=== PATIENT | male | born 1940 | race Two or more races ===

== ENCOUNTER 2024-10-12 13:46 | Inpatient (IN) | payer OTHER ==
[2024-10-12] MEDS: ALBUTEROL SO4 2.5/IPRATROPIUM 0.5 INH SOL 3 ML VIAL.NEB. NEB SCH (14:35)
[2024-10-12 14:51] LABS: PH,URINE 5.5 (5.0-8.0); URINE APPEARANCE CLEAR; URINE BILIRUBIN NEGATIVE (NEGATIVE); URINE COLOR YELLOW; URINE GLUCOSE (UA) 3+ (NEGATIVE); URINE KETONE NEGATIVE (NEGATIVE); URINE LEUK ESTERASE NEGATIVE (NEGATIVE); URINE NITRITE NEGATIVE (NEGATIVE); URINE PROTEIN NEGATIVE (NEGATIVE)
[2024-10-12 15:04] LABS: ABSOLUTE IMMATURE GRANULOCYTES 0.14 x10^3/uL (0.0-0.031); BASOPHILS # 0.05 x10^3/uL (0.01-0.08); EOSINOPHIL % 0.2 % (0.8-7.0); EOSINOPHILS # 0.02 x10^3/uL (0.04-0.54); HEMATOCRIT 43.6 % (40.1-51.0); MCHC 34.4 g/dl (32.3-36.5); MEAN CELL VOLUME 96.7 fl (79.0-92.2); MEAN PLT VOLUME 12.3 fl (9.4-12.4); MONOCYTE % 9.2 % (5.3-12.2); PLATELET COUNT # 117 x10^3/uL (163-337); RDW 14.2 % (12.6-16.6)
[2024-10-12] MEDS ORDERED: methylPREDNISolone NA SUCC 125 MG/2 ML VIAL ONE (15:07)
[2024-10-12] MEDS ORDERED: ALBUTEROL SO4 2.5/IPRATROPIUM 0.5 INH SOL 3 ML VIAL.NEB. NEB ONE (15:07)
[2024-10-12] MEDS ORDERED: FUROSEMIDE 40 MG/4 ML INJECTABLE VIAL ONE (15:07)
[2024-10-12 15:13] LABS: VENOUS BASE EXCESS 3.2 mmol/L (-2-2); VENOUS O2 SATURATION 59.5 % (70-80); VENOUS PCO2 50.9 mmHg (38-52); VENOUS PH 7.382 (7.310-7.410)
[2024-10-12 15:28] LABS: POTASSIUM 3.8 mmol/L (3.5-5.1)
[2024-10-12 15:30] LABS: ALBUMIN 4.1 g/dl (3.4-5.0); CALCIUM 8.9 mg/dL (8.5-10.1)
[2024-10-12 15:31] LABS: BLOOD UREA NITROGEN 37.1 mg/dL (7-18); MAGNESIUM 2.5 mg/dL (1.8-2.4)
[2024-10-12 15:33] LABS: CREATININE 2.1 mg/dL (0.55-1.3); PHOSPHOROUS 2.8 mg/dL (2.5-4.9)
[2024-10-12 15:35] LABS: TOT PROT 7.8 g/dl (6.4-8.2)
[2024-10-12 15:38] LABS: N-TERMINAL BNP 1971.5 pg/ml (5-450)
[2024-10-12] MEDS: methylPREDNISolone NA SUCC 125 MG/2 ML VIAL IVPUSH ONE (15:43)
[2024-10-12] MEDS: FUROSEMIDE 40 MG/4 ML INJECTABLE VIAL IVPUSH ONE (15:43)
[2024-10-12] MEDS: SODIUM CHLORIDE 0.9% 500 ML INFUS.BAG IV ONE (15:43)
[2024-10-12] MEDS ORDERED: AZITHROMYCIN IVPB 500 MG/250 ML BAG IVPB ONE (16:13)
[2024-10-12] MEDS ORDERED: CEFTRIAXONE 1 G/50 ML PREMIX 50 ML IVPB ONE (16:13)
[2024-10-12] MEDS: CEFTRIAXONE 1,000 MG in DEXTROSE 5%-WATER - 50 ML IVPB ONE (16:28)
[2024-10-12] MEDS: AZITHROMYCIN IVPB 500 MG in DEXTROSE 5%-WATER - 250 ML IVPB ONE (17:00)
[2024-10-12] MEDS ORDERED: ACETAMINOPHEN 500 MG TABLET (FP) PO PRN (18:18)
[2024-10-12] MEDS ORDERED: ALBUTEROL SO4 2.5/IPRATROPIUM 0.5 INH SOL 3 ML VIAL.NEB. NEB PRN (18:19)
[2024-10-12] MEDS: CARVEDILOL 6.25 MG TABLET (FP) PO SCH (21:18)
[2024-10-12] MEDS: APIXABAN 5 MG TABLET PO SCH (21:19)
[2024-10-13 08:12] LABS: POTASSIUM 3.4 mmol/L (3.5-5.1)
[2024-10-13 08:20] LABS: BLOOD UREA NITROGEN 45.3 mg/dL (7-18); CALCIUM 8.7 mg/dL (8.5-10.1)
[2024-10-13 08:22] LABS: ALBUMIN 3.3 g/dl (3.4-5.0)
[2024-10-13 08:27] LABS: BILIRUBIN,TOTAL 1.2 mg/dL (0.2-1); TOT PROT 6.7 g/dl (6.4-8.2)
[2024-10-13] MEDS: CEFTRIAXONE 1 G/50 ML PREMIX 50 ML IVPB SCH (09:55)
[2024-10-13] MEDS: NIFEdipine E.R. 90 MG TABLET PO SCH (09:55)
[2024-10-13] MEDS: AZITHROMYCIN IVPB 500 MG/250 ML BAG IVPB SCH (09:56)
[2024-10-13] MEDS ORDERED: clonazePAM 0.5 MG TABLET PO PRN (11:41)
[2024-10-13] MEDS: POTASSIUM CHLORIDE ORAL LIQUID 20 MEQ/15 ML PO ONE (12:00)
[2024-10-13] MEDS: POLYETHYLENE GLYCOL (HEALTHYLAX) 3350 17 GM PACKET PO PRN (12:00)
[2024-10-13] MEDS: ALBUTEROL SO4 2.5/IPRATROPIUM 0.5 INH SOL 3 ML VIAL.NEB. NEB SCH (15:15)
[2024-10-13 16:03] VITALS: BMI 29.1
[2024-10-13] MEDS: EMPAGLIFLOZIN (JARDIANCE) 10 MG TABLET PO SCH (17:43)
[2024-10-13 20:09] LABS: URINE APPEARANCE CLEAR; URINE BILIRUBIN NEGATIVE (NEGATIVE); URINE COLOR YELLOW; URINE GLUCOSE (UA) 3+ (NEGATIVE); URINE KETONE NEGATIVE (NEGATIVE); URINE LEUK ESTERASE NEGATIVE (NEGATIVE); URINE NITRITE NEGATIVE (NEGATIVE); URINE PROTEIN NEGATIVE (NEGATIVE); URINE UROBILINOGEN 0.2 mg/dL (0.2-1.0)
[2024-10-14 08:01] LABS: POTASSIUM 3.3 mmol/L (3.5-5.1)
[2024-10-14 08:14] LABS: BLOOD UREA NITROGEN 57.9 mg/dL (7-18); CALCIUM 8.7 mg/dL (8.5-10.1); MAGNESIUM 2.6 mg/dL (1.8-2.4)
[2024-10-14 08:15] LABS: ALBUMIN 3.2 g/dl (3.4-5.0)
[2024-10-14 08:19] LABS: BILIRUBIN,TOTAL 1.2 mg/dL (0.2-1); TOT PROT 6.5 g/dl (6.4-8.2)
[2024-10-14 09:42] LABS: BASOPHILS # 0.02 x10^3/uL (0.01-0.08); EOSINOPHIL % 0.3 % (0.8-7.0); EOSINOPHILS # 0.03 x10^3/uL (0.04-0.54); HEMATOCRIT 40.4 % (40.1-51.0); HEMOGLOBIN 14.1 g/dL (13.7-17.5); MCHC 34.9 g/dl (32.3-36.5); MEAN CELL VOLUME 97.6 fl (79.0-92.2); MEAN PLT VOLUME 12.4 fl (9.4-12.4); MONOCYTE # 0.66 x10^3/uL (0.30-0.82); MONOCYTE % 7.1 % (5.3-12.2); PLATELET COUNT # 118 x10^3/uL (163-337)
[2024-10-14] MEDS: TAMSULOSIN HCL 0.4 MG CAP PO ONE (10:43)
[2024-10-14] MEDS: POTASSIUM CHLORIDE ORAL LIQUID 20 MEQ/15 ML PO ONE (10:43)
[2024-10-14] MEDS: methylPREDNISolone NA SUCC 40 MG/1 ML VIAL IVPUSH SCH (13:22)
[2024-10-15] MEDS: EMPAGLIFLOZIN (JARDIANCE) 10 MG TABLET PO SCH (06:54)
[2024-10-15] MEDS: TAMSULOSIN HCL 0.4 MG CAP PO SCH (09:18)
[2024-10-15] MEDS: CARVEDILOL 6.25 MG TABLET (FP) PO ONE (11:09)
[2024-10-15 11:53] LABS: POTASSIUM 4.5 mmol/L (3.5-5.1)
[2024-10-15 11:54] LABS: CALCIUM 9.3 mg/dL (8.5-10.1)
[2024-10-15 11:55] LABS: BLOOD UREA NITROGEN 51.2 mg/dL (7-18)
[2024-10-15 11:58] LABS: CREATININE 1.8 mg/dL (0.55-1.3)
[2024-10-15] MEDS: CARVEDILOL 12.5 MG TABLET (FP) PO SCH (21:57)
[2024-10-15] MEDS: predniSONE 20 MG TABLET (UD) PO SCH (21:57)
[2024-10-15 23:36] VITALS: RESP 18
[2024-10-16 06:42] VITALS: BP 132/77; PULSE 132; TEMP 97.8
[2024-10-16] MEDS ORDERED: CEFUROXIME AXETIL 500 MG TABLET PO SCH (10:00)
[2024-10-16] MEDS ORDERED: AZITHROMYCIN 250 MG TABLET PO SCH (10:00)
== END 2024-10-16 07:36 | disposition short-term general hospital (02) | DRG 194 ==
LOC: JER 13:46 → JERBED 15:40 → J4W 17:56 → OBSVTOIN 18:13
PROVIDERS: ADMIT Internal Medicine; ATTEND Internal Medicine
DX: J18.9 Pneumonia, unspecified organism (principal); N17.9 Acute kidney failure, unspecified; I13.0 Hypertensive heart and chronic kidney disease with heart failure and stage 1 through stage 4 chronic kidney disease, or unspecified chronic kidney disease; I50.32 Chronic diastolic (congestive) heart failure; I47.10 Supraventricular tachycardia, unspecified; I45.10 Unspecified right bundle-branch block; E11.9 Type 2 diabetes mellitus without complications; I48.91 Unspecified atrial fibrillation; E78.5 Hyperlipidemia, unspecified; N18.9 Chronic kidney disease, unspecified; I49.5 Sick sinus syndrome
CPT/HCPCS: 0241U-QW; 36415; 71045-TC-FY; 76775-TC; 80048; 80053; 80061; 81003; 82550; 82803; 82962; 83036; 83735; 83880; 84100; 84439; 84443; 84484; 85025; 87086; 87899; 93005; 93010; 93306-TC; 93308; 94640; 94660; 99285-25; G0378